=== PATIENT | female | born 1955 | race Caucasian/White ===

== ENCOUNTER 2021-08-15 11:52 | Emergency (ER) | payer MEDICARE | END 2021-08-15 14:32 | disposition home or self-care (01) | LOC: FB.ED 11:52 | DX: S02.0XXA Fracture of vault of skull, initial encounter for closed fracture (principal); S00.83XA Contusion of other part of head, initial encounter; I10 Essential (primary) hypertension; J44.9 Chronic obstructive pulmonary disease, unspecified; Z72.0 Tobacco use; Z88.2 Allergy status to sulfonamides; W01.0XXA Fall on same level from slipping, tripping and stumbling without subsequent striking against object, initial encounter | CPT/HCPCS: 70450; 70486; 99281; 99284-25 ==